=== PATIENT | male | born 1985 ===

== ENCOUNTER 2021-12-08 10:13 | Inpatient (IN) | payer OTHER ==
[2021-12-08] MEDS ORDERED: MAGNESIUM HYDROXIDE 2,400 MG/10 ML CUP PO PRN (13:14)
[2021-12-08] MEDS ORDERED: LORazepam 1 MG TAB PO PRN (13:14)
[2021-12-08] MEDS ORDERED: ACETAMINOPHEN TAB 325 MG TAB PO PRN (13:14)
[2021-12-08] MEDS ORDERED: MAG HYDROX/AL HYDROX/SIMETH 30 ML CUP PO PRN (13:14)
[2021-12-08] MEDS ORDERED: HALOPERIDOL LACTATE 5 MG/ML 1 ML VIAL IM PRN (13:14)
[2021-12-08] MEDS ORDERED: haloperidoL 5 MG TAB PO PRN (13:17)
[2021-12-08] MEDS ORDERED: LORazepam 2 MG/ML INJ IM PRN (13:18)
[2021-12-08] MEDS: OLANZapine 5 MG TAB PO SCH (20:33)
[2021-12-09] MEDS: NICOTINE 14MG/24HR PATCH TRANSDERM SCH (10:06)
[2021-12-09 10:25] LABS: Chol/HDL Ratio 2.25 Ratio; LDL Cholesterol,Calculated 65.6 mg/dL (0.0-131.0)
--- NOTE | 2021-12-09 11:53 | P.HP ---
Psychiatric H&P - . H&P Date: 12/09/21 History & Physical: Allergies Allergy/AdvReac Type Severity Reaction Status Date / Time No Known Allergies Allergy Verified 12/08/21 13:13 Vital Signs Temp 97.4 F L 12/09/21 04:22 Pulse 76 12/09/21 04:22 Resp 16 12/09/21 04:22 BP 130/74 12/09/21 04:22 Pulse Ox 98 12/09/21 04:22 FiO2 Intake & Output 12/08/21 12/09/21 12/09/21 18:59 06:59 18:59 Weight 61.5 kg Laboratory Last Values Estimated Ave Glu mg/dL 109 12/09/21 07:20 Hemoglobin A1c 5.4 % (0.0-6.0) 12/09/21 07:20 Triglycerides 66.00 mg/dL (0.00-149.00) 12/09/21 07:20 Cholesterol 142.00 mg/dL (0.00-200.00) 12/09/21 07:20 LDL Cholesterol, Calc 65.6 mg/dL (0.0-131.0) 12/09/21 07:20 VLDL Cholesterol, Calc 13.20 mg/dL (5.00-40.00) 12/09/21 07:20 HDL Cholesterol 63.20 mg/dL (40.00-60.00) H 12/09/21 07:20 Cholesterol/HDL Ratio 2.25 Ratio 12/09/21 07:20 TSH 2.360 mIU/L (0.465-4.680) 12/09/21 07:20 12/09/21 11:52 IDENTIFYING DATA: Patient is a single, recently unemployed, 36-year-old male with significant history of psychosis presents her hospital from [facility] and a petition and certification for acute psychotic behavior. HPI: Patient presented to the hospital on 12/08/2021, brought in under petition and certification from [facility] for acute psychotic behavior. As per petition, the patient was "witnessed talking to himself in a rambling way while exhibiting erratic behavior in his neighborhood. Patient admitted to a suicide attempt via cutting years ago." First clinical certificate filled out by the emergency room physician states "patient is responding to internal stimuli, witnessed and went to self with erratic behavior. Total psychiatry evaluation recommends involuntary inpatient psychiatric placement." Upon evaluation on the psychiatric unit, the patient is reporting that he did experience significant psychotic episode prior to his admission at [facility]. He states that he expressed a "gnosticist experience, on top of hearing and seeing things, I was feeling textures and I felt that I was going into hell." The patient does admit that he was yelling and screaming. In regards to psychotic symptoms, the patient does endorse auditory hallucinations, visual hallucinations, tactile hallucinations, ideas of reference, grandiose delusions, gnosticist preoccupation, and delusions of control. In regards to mood symptoms, the patient is currently not endorsing any significant symptoms regarding depression or bipolar disorder at this time. How ever, the patient does report a history of depression and has a previous suicide attempt in 2012 by overdose. He does report racing thoughts, increased goal- directed activity, and grandiosity. The patient is agreeable to sign himself voluntarily into the psychiatric unit and take medications. PAST PSYCHIATRIC HISTORY: Patient states that he has been previously diagnosed with paranoid schizophrenia. He recalls only been previously prescribed Paxil in the past. He states that he last took this medication in 2011. The patient reports one prior psychiatric hospitalization at [facility] in 2012. Patient currently denies any outpatient psychiatric treatment. Patient does report one prior OD in 2012. PMH: No reported past medical history ALLERGIES: NO KNOWN DRUG ALLERGIES CHEMICAL DEPENDENCY HISTORY: The patient reports that he quit tobacco in 2012. He reports that he occasionally uses marijuana. He denies any heavy alcohol use after 2012. He reports occasional beer. He denies any other illicit drug use. He denies any history of rehabilitation. FAMILY PSYCHIATRIC/SUBSTANCE USE HISTORY: The patient reports that his father attempted suicide and has a history of alcohol use disorder. He reports no other family psychiatric history. SOCIAL HISTORY: Patient was born and raised in [place], [place]. He is single, never , and has no children. He currently lives with his mother and father. He has 2 associates degrees, 1 general, and the other law enforcement. 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 MENTAL STATUS EXAM: General Appearance: Patient appears to be stated age is alert, directable, and attempts to cooperate. Patient appears to have fair hygiene and grooming. Tall and thin build. Behavior: Patient is seated without any agitated behavior. Eye contact is appropriate. Excessive gesturing. Speech: Patient's speech is hyperverbal, slightly pressured, tangential at times but redirectable. Mood/Affect: Patient reports their mood is "elevated," affect appears to be expansive and slightly grandiose. Suicidality/Homicidality: Patient is currently denying any suicidal or homicidal ideation, intention, and/or plan. Perceptions: Patient does endorse visual and auditory hallucinations. Though content/process: Flight of ideas, ideas of reference, gnosticist preoccupation Memory and concentration: AOX3, grossly intact for the purposes of this session. Can spell "WORLD" backwards Judgment and insight: Fair STRENGTHS/WEAKNESSES: Strength that the patient is resourceful, with fair insight, and highly functioning. Weakness is that the patient has severe mental illness and history of nonadherence with treatment. INTELLECT: average IMPRESSIONS: Schizoaffective disorder, bipolar type PLAN: -Patient is admitted under involuntary converted to voluntary status to MHU for stabilization of psychiatric symptoms and safety. Patient signed adult voluntary form and medication consent and is placed in patient's chart. -Medications : Will start patient on Invega 3 mg by mouth at bedtime for mood stabilization/psychosis Depakote 750 mg by mouth at bedtime for mood stabilization -Ativan and Haldol PRN for agitation/aggression -Patient was counselled on substance abuse and desired to cut back on use -Patient was informed of the risks, benefits and side effects of the medication and patient verbally consented to taking the medications. Patient signed med consent form and was placed in chart. -Internal Medicine consult to perform medical evaluation and physical. - on board for discharge planning. Encourage patient to participate in groups to work on coping skills. 12/09/21 11:52
--- NOTE | 2021-12-09 13:13 | P.CONS ---
History of Present Illness - Reason for Consult Consult date: 12/09/21 - History of Present Illness Patient is a 36-year-old male with no past medical history there is transferred from [facility] for behavioral disturbances. He has been admitted to the mental health unit for further management of symptoms. [facility] has been consulted for medical management this patient. Patient reports constipation and is requesting a stool softener. He otherwise has no complaints. He denies any headache, lower extremity edema, nausea or vomiting, fever or chills, cough, chest pain, shortness of breath, palpitations, changes in urination or bowel habits. No changes in appetite or weight. He denies any dizziness, numbness/weakness/tingling of the extremities. Review of systems is performed and is negative except above. General: non toxic, no distress, appears at stated age Derm: warm, dry Head: atraumatic, normocephalic, symmetric Eyes: EOMI, no lid lag, anicteric sclera Mouth: no lip lesion, mucus membranes moist Cardiovascular: S1S2 reg, no murmur, positive posterior tibial pulse bilateral Lungs: CTA bilateral, no rhonchi, no rales , no accessory muscle use Abdominal: soft, nontender to palpation, no guarding, no appreciable organomegaly Ext: no gross muscle atrophy, no edema, no contractures Neuro: CN II-XI grossly intact, no focal neuro deficits Psych: Alert, oriented, appropriate affect #Constipation #Marijuana abuse #History of alcohol abuse #History of nicotine abuse Milk of magnesia as needed for constipation. Patient has been encouraged to quit smoking marijuana. Patient states that he is not had alcohol or smoked cigarettes since 2011. Thank you for this consultation. Please call [facility] with additional questions or concerns. Past Medical History Past Medical History: No Reported History History of Any Multi-Drug Resistant Organisms: None Reported Past Surgical History: No Surgical Hx Reported Past Anesthesia/Blood Transfusion Reactions: No Reported Reaction Past Psychological History: Anxiety, Depression, Schizophrenia Smoking Status: Never smoker Medications and Allergies Allergies Allergy/AdvReac Type Severity Reaction Status Date / Time No Known Allergies Allergy Verified 12/08/21 13:13 Physical Exam Vitals: Vital Signs Temp Pulse Resp BP Pulse Ox 12/09/21 04:22 97.4 F L 76 16 130/74 98 12/08/21 17:06 98.4 F 104 H 18 138/78 96 Intake and Output 12/08/21 12/09/21 12/09/21 22:59 06:59 14:59 Other: Weight 61.5 kg Results Labs: Abnormal Lab Results - Last 24 Hours (Table) 12/09/21 Range/Units 07:20 HDL Cholesterol 63.20 H (40.00-60.00) mg/dL
[2021-12-09 13:33] VITALS: BMI 18.8
[2021-12-09] MEDS: OLANZapine 5 MG TAB PO SCH (20:56)
[2021-12-09] MEDS: DIVALPROEX ER 250 MG TAB.ER.24H PO SCH (20:56)
[2021-12-09] MEDS ORDERED: PALIPERIDONE 3 MG TAB.ER.24 PO SCH (21:00)
[2021-12-10] MEDS: NICOTINE 14MG/24HR PATCH TRANSDERM SCH (09:34)
--- NOTE | 2021-12-10 10:56 | P.PN ---
Progress Note - Text Progress Note Date: 12/10/21 Interval History: Patient was seen wandering the hallways and was directable and agreeable to speak with automobile and property underwriter in the office. Currently, the patient is not reporting any suicidal or homicidal ideation. The patient is not reporting any visual hallucinations however continues endorse mandaen preoccupation, ideas of reference, and some grandiose delusions. He also reports that he appears to be focused and in love with a peer on the unit however states that he was spurned. He has been adherent with his medications and is not endorsing any significant side effects at this time. He did report some difficulty with sleep last night however states that he got up after approximately 4 hours and began reading. He denies any medical issues or concerns. Mental Status Exam: General Appearance: Patient appears to be stated age is alert, directable, and cooperative. Behavior: Patient is calmly seated without any agitated behavior. Speech: Patient's speech is fluent and nonpressured. Mood/Affect: Mood is improving mildly, affect is congruent and slightly expansive. Suicidality/Homicidality: Patient denies having any suicidal or homicidal ideation intent or plan. Perceptions: Patient denies any visual hallucinations and denies any auditory hallucinations Though content/process: Patient continues to endorse mandaen preoccupation, ideas of reference, and mild grandiose and bizarre delusions. Memory and concentration: AOX3, grossly intact for the purposes of this session Judgment and insight: Improving mildly Vital Signs Temp 97.7 F 12/10/21 04:00 Pulse 67 12/10/21 04:00 Resp 17 12/10/21 04:00 BP 93/54 12/10/21 04:00 Pulse Ox 99 12/10/21 04:00 FiO2 Intake & Output 12/09/21 12/10/21 12/10/21 18:59 06:59 18:59 Weight 61.5 kg Assessment Schizoaffective disorder, bipolar type Plan: -Patient continues to meet criteria for inpatient psychiatric admission for symptom stabilization and safety. Patient has signed adult voluntary form and medication consent and was placed in patient's chart. -Medications: Increase Invega to 6 mg for mood stabilization/psychosis Depakote 750 mg by mouth at bedtime for mood stabilization -When necessary Ativan and Haldol for agitation/aggression. -SW on board for discharge planning. Encouraged the patient to participate in milieu.
[2021-12-10] MEDS: OLANZapine 5 MG TAB PO SCH (20:12)
[2021-12-10] MEDS: DIVALPROEX ER 250 MG TAB.ER.24H PO SCH (20:12)
[2021-12-10] MEDS ORDERED: PALIPERIDONE 6 MG TAB.ER.24 PO SCH (21:00)
[2021-12-11 07:01] VITALS: BP 114/54; PULSE 83; RESP 14; TEMP 98.2
[2021-12-11] MEDS: NICOTINE 14MG/24HR PATCH TRANSDERM SCH (09:02)
--- NOTE | 2021-12-11 11:31 | P.DS ---
Providers Date of admission: 12/08/21 16:25 Expected date of discharge: 12/11/21 Attending physician: Luis Torres MD Consults: 12/08/21 13:14 Consult Physician Routine Consulting Provider: Belle Lopez Consult Reason/Comments: H and P Do you want consulting provider notified?: Yes Primary care physician: Stated None - Discharge Diagnosis(es) (1) Schizoaffective disorder, bipolar type Current Visit: Yes Status: Acute Priority: High Hospital Course: Admission HPI: Patient is a single, recently unemployed, 36-year-old male with significant history of psychosis presents her hospital from [facility] and a petition and certification for acute psychotic behavior. Patient presented to the hospital on 12/08/2021, brought in under petition and certification from [facility] for acute psychotic behavior. As per petition, the patient was "witnessed talking to himself in a rambling way while exhibiting erratic behavior in his neighborhood. Patient admitted to a suicide attempt via cutting years ago." First clinical certificate filled out by the emergency room physician states "patient is responding to internal stimuli, witnessed and went to self with erratic behavior. Total psychiatry evaluation recommends involuntary inpatient psychiatric placement." Upon evaluation on the psychiatric unit, the patient is reporting that he did experience significant psychotic episode prior to his admission at [facility]. He states that he expressed a "methodist experience, on top of hearing and seeing things, I was feeling textures and I felt that I was going into hell." The patient does admit that he was yelling and screaming. In regards to psychotic symptoms, the patient does endorse auditory hallucinations, visual hallucinations, tactile hallucinations, ideas of reference, grandiose delusions, methodist preoccupation, and delusions of control. In regards to mood symptoms, the patient is currently not endorsing any significant symptoms regarding depression or bipolar disorder at this time. However, the patient does report a history of depression and has a previous suicide attempt in 2012 by overdose. He does report racing thoughts, increased goal-directed activity, and grandiosity. The patient is agreeable to sign himself voluntarily into the psychiatric unit and take medications. Patient states that he has been previously diagnosed with paranoid schizophrenia. He recalls only been previously prescribed Paxil in the past. He states that he last took this medication in 2011. The patient reports one prior psychiatric hospitalization at [facility] in 2012. Patient currently denies any outpatient psychiatric treatment. Patient does report one prior OD in 2012. Hospital course: Upon admission to the unit patient was initially presenting as religiously preoccupied, grandiose, and overtly delusional. Patient was however directable and agreeable to commence treatment. Patient got along well with other patients on the unit and followed unit protocol. Patient was compliant with the medicati ons and denied any side effects throughout hospital course. Patient was started on regimen of Invega and Depakote for schizoaffective disorder. Patient spoke of his stressors and engaged in therapy both group and individual. Patient was also seen by medical team for history and physical exam. Over the course of the hospital physician, the patient is quite significant improvement crisis target symptoms of psychosis. The patient became more reality focused, less religiously preoccupied, and less delusional. He did however continue to endorse mild symptoms of ideas of reference however was much more linear and logical in conversation. On the day of discharge, the patient is not reporting any suicidal or homicidal ideation, intention, and/or plan. He is not reporting any auditory is not reporting any paranoia or other delusions. He does endorse some mild ideas of reference. He denies access to firearms or other weapons. The patient does have significant history of marijuana use and was counseled great length on abstaining from all substances including alcohol and marijuana. Patient was counseled on his medications and the importance of regular medication adherence appropriate outpatient follow-up. Prior to discharge, family meeting was arranged by 7th grade social studies teacher trans-any questions and ensure safety. Mental status exam: General Appearance: Patient appears to be stated age is alert, pleasant, and cooperative. Patient is in no acute distress and has fair hygiene and grooming Behavior: Patient is calmly seated without any agitated behavior. Speech: Patient's speech is fluent and nonpressured. Mood/Affect: Patient reports their mood is "much better", affect is congruent and euthymic to bright. Suicidality/Homicidality: Patient denies having any suicidal or homicidal ideation intent or plan. Perceptions: Patient denies any auditory or visual hallucinations. Though content/process: There is no evidence of any delusional thought content and thought process is linear and goal-directed. And is future oriented Memory and concentration: AOX3, grossly intact for the purposes of this session. Can spell "WORLD" backwards correctly. Judgment and insight: Improved with guarded prognosis Impression: Schizoaffective disorder, bipolar type Plan: -Continue with discharge today as patient has improved and stabilized psychiatrically and is not currently an imminent threat to himself and/or others. Patient will remain at chronically elevated risk due to the severity of mental illness as well as his history of substance use. -Continue medications: Depakote 750 mg daily at bedtime mood stabilization Invega 6 mg by mouth at bedtime for mood stabilization/psychosis -Patient was counseled on the need for medication compliance and appropriate follow-up at mental health and also primary care for medical issues. Patient verbalized understanding and agreed. -Social work to arrange for and conduct family meeting to ensure safety upon discharge and answer any questions/concerns. Social work also to arrange for patients follow up appointments with [facility] for psychiatric care along with follow up with primary care provider. -Patient counseled on abstaining from recreational drugs and marijuana and alcohol. Was informed/educated on the adverse effects on their physical and mental health. Patient verbally agreed and understood. -Patient was instructed to return to the hospital or seek immediate medical care if their psychiatric or medical symptoms do worsen or reoccur. -Patient was strongly encouraged to follow-up with his primary care provider for monitoring labs for Depakote level as well as CMP. -Psychoeducation and supportive therapy provided to patient. Risks and benefits of pharmacological treatment versus the risks and benefits of nontreatment weight and discussed. Informed consent discussion held. Common side effects of psychotropics discussed such as, but not limited to headache, GI disturbance, sexual dysfunction, movement disorders, sedation, and orthostatic hypotension. Life threatening and blackbox warnings of prescribed medications also discussed. Potential risks of operating a vehicle or heavy machinery discussed with p atient at length. Advised on importance of compliance and a reliable and responsible manner. Patient advised to review FDA consumer labeling of all medications prior to taking. Patient verbalized understanding of potential risks, and agrees with current treatment plan. Patient advised to medically contact physician/emergency personnel if any acute changes in condition occur. Laboratory Results Estimated Ave Glu mg/dL 109 12/09/21 07:20 Hemoglobin A1c 5.4 % (0.0-6.0) 12/09/21 07:20 Triglycerides 66.00 mg/dL (0.00-149.00) 12/09/21 07:20 Cholesterol 142.00 mg/dL (0.00-200.00) 12/09/21 07:20 LDL Cholesterol, Calc 65.6 mg/dL (0.0-131.0) 12/09/21 07:20 VLDL Cholesterol, Calc 13.20 mg/dL (5.00-40.00) 12/09/21 07:20 HDL Cholesterol 63.20 mg/dL (40.00-60.00) H 12/09/21 07:20 Cholesterol/HDL Ratio 2.25 Ratio 12/09/21 07:20 TSH 2.360 mIU/L (0.465-4.680) 12/09/21 07:20 Allergies Allergy/AdvReac Type Severity Reaction Status Date / Time No Known Allergies Allergy Verified 12/08/21 13:13 Vital Signs Temp 98.2 F 12/11/21 06:32 Pulse 83 12/11/21 06:32 Resp 14 12/11/21 06:32 BP 114/54 12/11/21 06:32 Pulse Ox 99 12/10/21 04:00 FiO2 Patient Condition at Discharge: Stable Plan - Discharge Summary Discharge Rx Participant: Yes New Discharge Prescriptions: New Divalproex ER [Depakote ER] 750 mg PO HS 30 Days tab Paliperidone [Invega] 6 mg PO HS 30 Days tab Discharge Medication List Divalproex ER [Depakote ER] 750 mg PO HS 30 Days tab 12/11/21 [Rx] Paliperidone [Invega] 6 mg PO HS 30 Days tab 12/11/21 [Rx] Follow up Appointment(s)/Referral(s): Abdi BALDWINel cerrito) [Other] - 12/26/21 10:00 am (With Ana Maria Munoz) Patient Instructions/Handouts: How to Stop Smoking (DC), Schizoaffective Disorder (DC) Activity/Diet/Wound Care/Special Instructions: Avoid the use of street drugs and alcohol. Take all prescriptions as prescribed. When you are in need of refills on your medications, please contact your medical provider and/or outpatient psychiatrist to have this done. Please go to scheduled outpatient appointment for aftercare treatment. If symptoms return or become worse, call the crisis line at and/or go to the nearest emergency room for evaluation. Discharge Disposition: HOME SELF-CARE
== END 2021-12-11 16:50 | disposition home or self-care (01) | DRG 885 ==
LOC: 3MHU 16:25
PROVIDERS: ADMIT Psychiatry & Neurology Psychiatry; ATTEND Psychiatry & Neurology Psychiatry
DX: F25.0 Schizoaffective disorder, bipolar type (principal); R45.851 Suicidal ideations; K59.00 Constipation, unspecified; Z87.891 Personal history of nicotine dependence; Z91.51 Personal history of suicidal behavior; Z79.899 Other long term (current) drug therapy
CPT/HCPCS: 80061; 83036; 84443